=== PATIENT | female | born 1980 | race Caucasian/White ===

== ENCOUNTER → 2020-11-21 | Outpatient (CLI) | payer OTHER ==
[~2020-11-21] MED LIST: CALCIUM500 MG PO; CYMBALTA30 MG PO; FLUTICASONE SPRAY; HYDROCHLOROTH12.5 MG PO; HYDROCODON-ACE1 EAC6 PO; LEVOTHYROXINE25 MC1 PO; LISINOPRIL10 MG PO; VITAMIN D310 MC2 PO; XYZAL5 MG PO
== END ==
LOC: EMI 16:32
DX: M23.92 Unspecified internal derangement of left knee (principal)
CPT/HCPCS: 73721

== ENCOUNTER → 2020-11-26 | Outpatient (CLI) | payer OTHER ==
[2020-11-26 13:12] LABS: BUN/CREATININE RATIO 15 (0-10)
[2020-11-27 13:15] LABS: COMPLEMENT C3, SERUM 142 mg/dL (82-167); COMPLEMENT C4, SERUM 23 mg/dL (12-38); RHEUMATOID ARTHRITIS FACTOR <10.0 IU/mL (0.0-13.9)
[2020-11-27 14:14] LABS: ANTI-DSDNA ANTIBODIES <1 IU/mL (0-9); ANTICHROMATIN ANTIBODIES <0.2 AI (0.0-0.9)
[2020-11-28 00:09] LABS: CCP ANTIBODIES IGG/IGA 6 units (0-19)
== END ==
LOC: LAB 11:42
PROVIDERS: Orthopaedic Surgery
DX: M25.562 Pain in left knee (principal); M25.462 Effusion, left knee
CPT/HCPCS: 36415; 80053; 84550; 85652; 86038; 86140; 86160; 86200; 86225; 86431

== ENCOUNTER → 2021-01-22 | Day surgery (SDC) | payer OTHER ==
[2021-01-22 08:38] LABS: HEMOGLOBIN 12.5 gm/dl (12.3-15.3); RED BLOOD COUNT 3.99 M/UL (4.00-5.10); WHITE BLOOD COUNT 5.1 K/UL (4.5-11.0)
[2021-01-22 08:52] LABS: BUN/CREATININE RATIO 12 (0-10)
== END | disposition home or self-care (01) ==
LOC: OR 07:55
PROVIDERS: Orthopaedic Surgery
DX: M17.12 Unilateral primary osteoarthritis, left knee (principal); M94.262 Chondromalacia, left knee; I10 Essential (primary) hypertension; Q96.9 Turner's syndrome, unspecified; E03.9 Hypothyroidism, unspecified; J45.909 Unspecified asthma, uncomplicated; F41.9 Anxiety disorder, unspecified; F32.9 Major depressive disorder, single episode, unspecified; Z79.899 Other long term (current) drug therapy
CPT/HCPCS: 36415; 80048; 84703; 85027; 93005; J0171; J1100; J1885; J2001; J2250; J2274; J2405; J2704; J3010; J3301; J7120